=== PATIENT | female | born 1995 | race Two or more races ===

== ENCOUNTER 2023-09-20 20:26 | Emergency (ER) | payer SELFPAY ==
[2023-09-20 20:43] VITALS: BP 142/89
[2023-09-20 20:57] LABS: % Basophils 0.3 % (0-2); % Eosinophils 1.4 % (0-6); % Immature Granulocytes 0.5 % (0-0.5); % Lymphocytes 21.2 % (20.5-51.1); % Monocytes 4.5 % (1.7-9.3); % Neutrophils 72.1 % (42.2-75.2); Absolute Eosinophils 0.1 10^3/uL (0-0.7); Absolute Lymphocytes 1.9 10^3/uL (1.2-3.4); Absolute Monocytes 0.4 10^3/uL (0.1-0.6); Absolute Neutrophils 6.3 10^3/uL (1.4-6.5); Hematocrit 34.3 % (37.0-47.0); Hemoglobin 12.2 g/dL (12.0-16.0); Mean Corp Hgb Conc. 35.6 g/dL (33.0-37.0); Mean Corpuscular Hgb 27.8 pg (27.0-31.0); Mean Corpuscular Volume 78.1 fL (81.0-99.0); Mean Platelet Volume 10.1 fL (7.4-10.4); Nucleated Red Blood Cells % 0 %; Platelet Count 271 10^3/uL (130-400); Red Blood Cell Count 4.39 10^6/uL (4.20-5.40); Red Cell Dist. Width 13.2 % (11.5-14.5); White Blood Cell Count 8.7 10^3/uL (4.8-10.8)
[2023-09-20 21:20] LABS: ALT (SGPT) 38 U/L (0-35); AST (SGOT) 28 U/L (14-36); Albumin 4.3 g/dl (3.5-5.0); Alkaline Phosphatase 70 U/L (38-126); Blood Urea Nitrogen 5 mg/dl (7-17); Calcium 9.6 mg/dl (8.4-10.2); Carbon Dioxide 21 mmol/L (22-30); Chloride 106 mmol/L (98-107); Glucose 93 mg/dl (70-99); Potassium 3.9 mmol/L (3.5-5.1); Sodium 136 mmol/L (135-145); Total Bilirubin 0.5 mg/dl (0.2-1.3); eGFR > 60.00
[2023-09-21] MEDS: LET TOPICAL ANESTHETIC GEL 3 ML TOPICAL (01:06)
[2023-09-21 01:08] VITALS: BP 111/64
--- NOTE | 2023-09-21 01:58 | ED.GENMED ---
History of Present Illness
General
Chief Complaint: Abdominal Symptoms
Source: patient
Exam Limitations: none
Time Seen by Provider: 09/21/23 00:22
Nursing documentation reviewed up to this point in time: agreed with
History of Present Illness
History of Present Illness:
28-year-old female presenting to the emergency department currently 14 weeks with concerns of constipation and anal discomfort. She claims that she has sharp pain to the anus over the past 2 days made worse when straining. She has noted
some blood in the toilet as well described as red blood and dripping denies large-volume. Denies lightheadedness chest pain shortness of breath has had ongoing nausea of .
Review of Systems
Review of Systems
Allergies reviewed?: Yes
All Other Systems: ROS reviewed and negative except as documented in HPI and ROS
Phy Exam
Physical Exam
Physical Exam:
GENERAL: Alert , in no apparent distress
EYE: pupils equal and reactive
NECK: Supple, no significant adenopathy.
ENT: o/p clr, mmm.
CARDIAC: Regular rate and rhythm .
LUNGS: Clear breath sounds bilaterally, no acute respiratory distress, no wheezes/rales/rhonchi
ABDOMEN: Rectal examination revealing a anal fissure to the right lateral portion no external head no active bleeding. Very uncomfortable when viewing the area. Patient was unable to tolerate an internal exam. Soft, without focal tenderness, no
r/g, no cvat
NEUROLOGICAL: Alert and oriented, no focal neuro deficits
SKIN: Warm and dry, skin intact.
MUSCULOSKELETAL: No edema, well perfused.
PSYCH: Normal and appropriate interaction.
Course
Orders/Labs/Results
Orders:
Orders
09/20/23 20:51
Complete Blood Count/With Diff Urgent
Comprehensive Metabolic Panel Urgent
09/21/23 00:54
Lidocaine/Epinephrine/Tetracai [Let Topical Anesthetic Gel] 3 ml TOPICAL NOW STA
Abnormal Lab Results
09/20/23
20:51
Hct 34.3 L %
(37.0-47.0)
MCV 78.1 L fL
(81.0-99.0)
Carbon Dioxide 21 L mmol/L
(22-30)
BUN 5 L mg/dl
(7-17)
Creatinine 0.5 L mg/dL
(0.6-1.0)
ALT 38 H U/L
(0-35)
09/20/23 20:51
09/20/23 20:51
Vital Signs
Initial and Last Documented VS:
Initial Vital Signs
Temp Pulse Resp BP Pulse Ox
98.5 F 104 19 142/89 92
09/20/23 20:43 09/20/23 20:43 09/20/23 20:43 09/20/23 20:43 09/20/23 20:43
Last Documented Vital Signs
Temp Pulse Resp BP Pulse Ox
98.5 F 74 18 111/64 100
09/20/23 20:43 09/21/23 01:08 09/21/23 01:08 09/21/23 01:08 09/21/23 01:08
MDM/Problems Addressed
MDM/Problems Addressed:
28-year-old female presenting to the emergency department today with concerns of anal discomfort with bowel movements as well as constipation recently. Patient is currently 14 weeks . On examination she has an anal fissure no hemorrhoids
no abdominal pain. Patient was given a numbing cream otherwise given Metamucil to help with constipation but stable for outpatient treatment return precautions given.
*Critical Care Note
Total Time (30-74mins, 75-104mins- exclusive of procedures): Not Applicable
ED Attending Note
-
Portions of this chart may have been created with voice recognition software.� Occasional wrong word or��sound alike� substitutions may have occurred due to the inherent limitations of voice recognition software.
Discharge Plan
Departure
Patient Disposition: Home (Routine Discharge)
Date of Disposition: 09/21/23
Time of Disposition: 01:58
Patient with high blood pressure during this ER visit?: No
Condition: Good
Covid-19: Not Applicable
Discharge Problem:
Acute anal fissure
Instructions: Anal Fissure (DC)
Prescriptions:
New
Trena-Jj Kit 2-2 % kit
1 applic OR BID Qty: 1 0RF
Metamucil 3.4 gram/5.4 gram powder
1 tbsp PO DAILY Qty: 660 0RF
Referrals:
NONE,* [Family Provider] -
Activity Restrictions/Additional Instructions:
You came to the emergency department and were found to have an anal fissure. This should heal in a few days treated properly. Please use the topical cream or ointment to help with symptoms and use the Metamucil to soften stool. Please stay very
hydrated. Return to the emergency department for any worsening, new or concerning symptoms.
Interventions
Interventions:
*Risk Screen - Suicide Last Done: 09/21/23 02:09
*General Assessment Last Done: 09/21/23 02:09
*Neglect/Abuse Screening Last Done: 09/21/23 02:09
ED- Fall Risk Assessment Last Done: 09/21/23 02:09
*ED COVID-19 Vaccine History Last Done: 09/21/23 02:09
*Nursing Disposition Last Done: 09/21/23 02:09
NR-Lsapdp-Gtwwcqnbsc Assessment Last Done: 09/21/23 00:00
Discharge Date and Time
Discharge Date/Time: 09/21/23 02:09
Print Language: YEMENI
== END 2023-09-21 02:09 | disposition home or self-care (01) ==
LOC: EMR 20:26
PROVIDERS: EMERGENCY PHYSICIAN Emergency Medicine
DX: O99.891 Other specified diseases and conditions complicating pregnancy (principal); K60.0 Acute anal fissure; Z3A.14 14 weeks gestation of pregnancy
CPT/HCPCS: 99283; 80053; 85025

== ENCOUNTER 2023-09-24 22:01 | Emergency (ER) | payer SELFPAY ==
[2023-09-24 22:03] VITALS: BP 122/79
[2023-09-25] MEDS: FLEET MINERAL OIL ENEMA 133 ML RECTAL (00:26)
--- NOTE | 2023-09-25 00:44 | ED.GENMED ---
History of Present Illness
General
Chief Complaint: Abdominal Symptoms
Source: patient
Exam Limitations: none
Time Seen by Provider: 09/24/23 23:36
Nursing documentation reviewed up to this point in time: agreed with
History of Present Illness
History of Present Illness:
Patient G1, P0, approximately 15 weeks , presents to ED secondary to difficulty with bowel movement despite having rectal pressure. Patient has taken number of [id number]-[id number] medications, without improvement symptoms. Denies fever.
Denies chills. Denies nausea or vomiting. Denies loss of appetite. Denies abdominal pain. Denies previous history of similar symptoms.
Review of Systems
Review of Systems
Allergies reviewed?: Yes
All Other Systems: ROS reviewed and negative except as documented in HPI and ROS
Constitutional: Reports no symptoms
ABD/GI: Reports constipated; Denies abdominal pain or vomiting
Musculoskeletal: Reports no symptoms
Skin: Reports no symptoms
Neurological: Reports no symptoms
Phy Exam
Physical Exam
Physical Exam:
Physical Exam
General: no apparent distress, not acutely ill. afebrile
Head: nc/at. eomi
Neck: supple. normal range of motion
Abdomen: normal bowel sounds. not tender. rectal exam (SIERRA Avelar, at bedside) : hard stool noted
Neuro: alert and oriented. no focal neurological deficits
Skin: no rash
Psychiatric: well kept. interactive and cooperative
Extremities: no edema. no calf tenderness.
Course
Orders/Labs/Results
Orders:
Orders
09/25/23 00:04
Mineral Oil Enema [Fleet Mineral Oil Enema] 133 ml .ROUTE .STK-MED ONE
09/25/23 00:05
Phosphate Enema [Fleet Phosphate Enema-Adult] 135 ml RECTAL NOW STA
09/25/23 00:25
Mineral Oil Enema [Fleet Mineral Oil Enema] 133 ml RECTAL NOW STA
Vital Signs
Initial and Last Documented VS:
Initial Vital Signs
Temp Pulse Resp BP Pulse Ox
98.3 F 94 18 122/79 99
09/24/23 22:03 09/24/23 22:03 09/24/23 22:03 09/24/23 22:03 09/24/23 22:03
Last Documented Vital Signs
Temp Pulse Resp BP Pulse Ox
98.3 F 100 18 120/75 99
09/24/23 22:03 09/25/23 00:55 09/24/23 22:03 09/25/23 00:55 09/24/23 22:03
MDM/Problems Addressed
MDM/Problems Addressed:
Patient successfully disimpacted in ED, with removal of moderate amount of stool. Patient reports improved symptoms after treatment. Patient otherwise is safe to be discharged home, with recommendation to continue bowel regimen at home, including
MiraLAX as an outpatient, as well as PCP f/u as outpatient.
*Critical Care Note
Total Time (30-74mins, 75-104mins- exclusive of procedures): Not Applicable
ED Attending Note
-
Portions of this chart may have been created with voice recognition software.� Occasional wrong word or��sound alike� substitutions may have occurred due to the inherent limitations of voice recognition software.
Discharge Plan
Departure
Patient Disposition: Home (Routine Discharge)
Date of Disposition: 09/25/23
Time of Disposition: 00:44
Patient with high blood pressure during this ER visit?: Yes
Condition: Good
Discharge Problem:
Constipation
Instructions: Constipation, Adult ED
Prescriptions:
No Action
Trena-Jj Kit 2-2 % kit
1 applic [place] BID Qty: 1 0RF
Metamucil 3.4 gram/5.4 gram powder
1 tbsp PO DAILY Qty: 660 0RF
Referrals:
NONE,* [Family Provider] -
Activity Restrictions/Additional Instructions:
As discussed, please follow up with your primary care physician with any further concerns. In the meantime, please consider taking Miralax as well as increasing fiber intake at home.
Interventions
Interventions:
*Risk Screen - Suicide Last Done: 09/24/23 22:03
*General Assessment Last Done: 09/24/23 22:03
*Neglect/Abuse Screening Last Done: 09/24/23 22:03
*Nursing Disposition Last Done: 09/25/23 00:55
SR-Wcqftp-Ptzmtpsazb Assessment Last Done: 09/24/23 23:29
Discharge Date and Time
Discharge Date/Time: 09/25/23 00:56
Print Language: BHUTANESE
[2023-09-25 00:55] VITALS: BP 120/75
== END 2023-09-25 00:56 | disposition home or self-care (01) ==
LOC: EMR 22:01
PROVIDERS: EMERGENCY PHYSICIAN Emergency Medicine
DX: O26.892 Other specified pregnancy related conditions, second trimester (principal); Z3A.15 15 weeks gestation of pregnancy; K59.00 Constipation, unspecified; R11.0 Nausea
CPT/HCPCS: 99283

== ENCOUNTER 2024-04-19 02:16 | Emergency (ER) | payer OTHER, SELFPAY ==
[2024-04-19] VITALS (7 sets, daily range): BP systolic 115–129; BP diastolic 62–79; BMI 38.6
--- NOTE | 2024-04-19 02:59 | ED.GENMED ---
History of Present Illness
<Fernando Cole DO - Last Filed: 04/19/24 06:45>
General
Chief Complaint: Chest Pain
Source: patient, family and ambulance crew
Exam Limitations: none
Time Seen by Provider: 04/19/24 02:22
Nursing documentation reviewed up to this point in time: agreed with
History of Present Illness
History of Present Illness:
This a pleasant 28-year-old female with history of hypertension and SVT presents to the emergency department chest pain that began approximate 30 minutes prior to arrival. She is 4 weeks with a healthy child. She states that the pain
came on suddenly and has been severe. She has never experienced this pain before. Denies fever, chills, nausea or vomiting. Patient received nitroglycerin prior to arrival via EMS.
Review of Systems
<DO Michaela Rollins Last Filed: 04/19/24 06:45>
Review of Systems
Allergies reviewed?: Yes
All Other Systems: ROS reviewed and negative except as documented in HPI and ROS
Constitutional: Reports no symptoms
EENT: Reports no symptoms
Respiratory: Reports no symptoms
Cardiac: Reports chest pain
ABD/GI: Reports no symptoms
: Reports no symptoms
Musculoskeletal: Reports no symptoms
Skin: Reports no symptoms
Neurological: Reports no symptoms
Endocrine: Reports no symptoms
Hematologic/Lymphatic: Reports no symptoms
Psychiatric: Reports no symptoms
Phy Exam
<Daniel Mendoza MD - Last Filed: 04/20/24 10:58>
Physical Exam
Physical Exam:
*
Scores
<Daniel Mendoza MD - Last Filed: 04/20/24 10:58>
Heart Score for Chest Pain Patients
STEMI patient?: Not applicable
Course
<DO Michaela Rollins Last Filed: 04/19/24 06:45>
Orders/Labs/Results
Orders:
Orders
04/19/24 02:19
Electrocardiogram (*1) Urgent
Reason for Study: Chest Pain
EKG- Treatment ONCE
04/19/24 02:27
CR Chest Portable - 1 View Urgent
Comment:
Reason For Exam: chest pain
Reason Study Needs to be Portable: Patient Unstable
04/19/24 02:48
Comprehensive Metabolic Panel Urgent
Prothrombin Time Urgent
04/19/24 02:49
Complete Blood Count/With Diff Urgent
Troponin I Urgent
04/19/24 02:59
CT Chest PE Study Urgent
Comment:
Reason For Exam: sudden cp rad thru back, dyspnea. 4 wks pptm
04/19/24 04:23
Troponin I Urgent
04/19/24 05:37
US Abdomen Complete/Upper Urgent
Comment:
Reason For Exam: upper abd pain
04/19/24 05:40
Sucralfate Suspension [Carafate Suspension] 1 gm PO NOW STA
04/19/24 Breakfast
Low Fat
At Your Request: Full Participation
04/19/24 06:44
HYDROmorphone [Dilaudid] 0.5 mg IV NOW STA
04/19/24 07:00
Ondansetron Injectable [Zofran] 4 mg .ROUTE .STK-MED ONE
04/19/24 07:02
Ondansetron Injectable [Zofran] 4 mg IV NOW STA
04/19/24 10:09
Urinalysis Reflex To Culture Urgent
Date Specimen was Collected: 04/19/24
Time Specimen was Collected: 10:00
Abnormal Lab Results
04/19/24 04/19/24
02:48 02:49
RBC 3.85 L 10^6/uL
(4.20-5.40)
Hgb 10.7 L g/dL
(12.0-16.0)
Hct 31.8 L %
(37.0-47.0)
BUN 26 H mg/dl
(7-17)
Glucose 115 H mg/dl
(70-99)
AST 38 H U/L
(14-36)
04/19/24 02:49
04/19/24 02:48
Vital Signs
Initial and Last Documented VS:
Initial Vital Signs
Pulse BP Pulse Ox
78 121/79 100
04/19/24 02:19 04/19/24 02:19 04/19/24 02:19
Last Documented Vital Signs
Temp Pulse Resp BP Pulse Ox
98.1 F 97 24 129/68 96
04/19/24 02:20 04/19/24 08:30 04/19/24 08:30 04/19/24 08:00 04/19/24 08:00
<Daniel Mendoza MD - Last Filed: 04/20/24 10:58>
Orders/Labs/Results
Orders:
Orders
04/19/24 02:19
Electrocardiogram (*1) Urgent
Reason for Study: Chest Pain
EKG- Treatment ONCE
04/19/24 02:27
CR Chest Portable - 1 View Urgent
Comment:
Reason For Exam: chest pain
Reason Study Needs to be Portable: Patient Unstable
04/19/24 02:48
Comprehensive Metabolic Panel Urgent
Prothrombin Time Urgent
04/19/24 02:49
Complete Blood Count/With Diff Urgent
Troponin I Urgent
04/19/24 02:59
CT Chest PE Study Urgent
Comment:
Reason For Exam: sudden cp rad thru back, dyspnea. 4 wks pptm
04/19/24 04:23
Troponin I Urgent
04/19/24 05:37
US Abdomen Complete/Upper Urgent
Comment:
Reason For Exam: upper abd pain
04/19/24 05:40
Sucralfate Suspension [Carafate Suspension] 1 gm PO NOW STA
04/19/24 Breakfast
Low Fat
At Your Request: Full Participation
04/19/24 06:44
HYDROmorphone [Dilaudid] 0.5 mg IV NOW STA
04/19/24 07:00
Ondansetron Injectable [Zofran] 4 mg .ROUTE .STK-MED ONE
04/19/24 07:02
Ondansetron Injectable [Zofran] 4 mg IV NOW STA
04/19/24 10:09
Urinalysis Reflex To Culture Urgent
Date Specimen was Collected: 04/19/24
Time Specimen was Collected: 10:00
Abnormal Lab Results
04/19/24 04/19/24
02:48 02:49
RBC 3.85 L 10^6/uL
(4.20-5.40)
Hgb 10.7 L g/dL
(12.0-16.0)
Hct 31.8 L %
(37.0-47.0)
BUN 26 H mg/dl
(7-17)
Glucose 115 H mg/dl
(70-99)
AST 38 H U/L
(14-36)
04/19/24 02:49
04/19/24 02:48
Vital Signs
Initial and Last Documented VS:
Initial Vital Signs
Pulse BP Pulse Ox
78 121/79 100
04/19/24 02:19 04/19/24 02:19 04/19/24 02:19
Last Documented Vital Signs
Temp Pulse Resp BP Pulse Ox
98.1 F 97 24 129/68 96
04/19/24 02:20 04/19/24 08:30 04/19/24 08:30 04/19/24 08:00 04/19/24 08:00
<Fernando Cole DO - Last Filed: 04/19/24 06:45>
*Critical Care Note
Total Time (30-74mins, 75-104mins- exclusive of procedures): Not Applicable
<Fernando Cole DO - Last Filed: 04/19/24 06:45>
Update Note
Update Note:
CTA chest with IV contrast
IMPRESSION:
No central pulmonary embolus. Nondiagnostic assessment beyond the central pulmonary arteries secondary to suboptimal bolus contrast timing and extensive artifact.
Artifact limits assessment of the aorta which appears grossly unremarkable. Mild cardiomegaly. Thyroid gland normal. No suspicious lymphadenopathy.
Lungs clear. No pneumothorax or pleural effusion. Central airways patent. Liver is enlarged.
Finalized at 3:42 AM EST
Patient resting comfortably. She states her chest pain is now in her abdomen. Will get an ultrasound of her gallbladder as well as give her Carafate.
Order #:[id number]
Exams: US Abdomen Complete/Upper
US Abdomen Complete/Upper 04/19/2024 5:45 AM
Indication:upper abd pain.
Comparison: None..
Findings:
Liver is unremarkable in echotexture without evidence of focal lesion. The portal and hepatic vessels appear grossly patent.
No intra- or extrahepatic biliary ductal dilatation with the visualized portion of the common duct measuring 6 mm. Gallstones present. No suspicious gallbladder wall thickening, pericholecystic fluid or sonographic Guerra's sign.
Limited visualization of the tail of the pancreas, with the visualized portion of the pancreas unremarkable. Spleen measures 13.4 cm in length, which is borderline enlarged. No free fluid in the upper abdomen.
Right kidney measures 10.5 cm, and the left kidney measures 11.8 cm in length. Mild left hydronephrosis. No hydronephrosis.
Visualized portions of the abdominal aorta and inferior vena cava appear unremarkable.
IMPRESSION:
1. Cholelithiasis without sonographic evidence for acute cholecystitis.
2. Borderline splenomegaly.
3. Mild left-sided hydronephrosis without an obstructing cause identified sonographically.
I wanted to discuss ultrasound findings with the patient. She is having severe abdominal pain again. This is reminiscent of the pain that she came in with. Patient to get pain meds and admitted to the hospitalist service.
ED Attending Note
<Fernando Cole DO - Last Filed: 04/19/24 06:45>
-
Portions of this chart may have been created with voice recognition software.� Occasional wrong word or��sound alike� substitutions may have occurred due to the inherent limitations of voice recognition software.
<Daniel Mendoza MD - Last Filed: 04/20/24 10:58>
ED Attending Note
ED Attending Note:
Patient evaluated by admitting hospitalist, . At this time, patient is pain-free and requesting to be discharged home. Risk and benefits discussed with patient, including worsening symptoms, i.e. pain/infection. Patient will follow-up
with referred surgery as well as urology for outpatient consultation, with understanding that she must return to ED with worsening symptoms, i.e. fever/worsening pain/vomiting. Patient otherwise is afebrile, hemodynamically stable, and
nontoxic-appearing, at time of discharge.
Discussed left mild hydronephrosis noted on ultrasound, with on-call urology, . As patient is asymptomatic with normal workup, feels that patient can be discharged home for outpatient follow-up in the office.
Discharge Plan
Departure
Patient Disposition: Home (Routine Discharge)
Date of Disposition: 04/19/24
Time of Disposition: 06:44
Admit to: Med/Surg
Patient with high blood pressure during this ER visit?: No
Condition: Good
Discharge Problem:
Cholelithiasis, Hydronephrosis
Instructions: Gallstones, Hydronephrosis in adults, Low-fat diet
Prescriptions:
No Action
acetaminophen [Tylenol] 325 mg Tablet
650 mg PO Q4HPRN PRN (Reason: mild pain)
albuterol sulfate 2.5 mg /3 mL (0.083 %) Solution For Nebulization
2.5 mg INHALATION R Q4HPRN PRN (Reason: sob)
ascorbic acid (vitamin C) [Vitamin C] 500 mg Tablet
500 mg PO DAILY
ferrous sulfate 325 mg (65 mg iron) Tablet
325 mg PO DAILY
albuterol sulfate [ProAir HFA] 90 mcg/actuation Hfa Aerosol Inhaler
2 puff INHALATION R Q6HPRN PRN (Reason: sob)
cholecalciferol (vitamin D3) [Vitamin D3] 25 mcg (1,000 unit) Tablet
25 mcg PO DAILY
28-800 mg-mcg Tablet
1 tab PO DAILY
Referrals:
Lebron Denson MD [Active] -
Edd Owen MD [Active] -
NONE,* [Family Provider] -
Activity Restrictions/Additional Instructions:
As discussed, please follow-up with referred general surgeon and urologist for further evaluation and treatment. Please consider return to ED with worsening symptoms, i.e. fever/worsening pain/vomiting.
Interventions
Interventions:
*Risk Screen - Suicide Last Done: 04/19/24 02:20
*General Assessment Last Done: 04/19/24 02:20
*Neglect/Abuse Screening Last Done: 04/19/24 02:20
ED- Fall Risk Assessment Last Done: 04/19/24 02:43
*ED COVID-19 Vaccine History Last Done: 04/19/24 02:47
*Nursing Disposition Last Done: 04/19/24 13:20
ED- Cardiac Assessment Last Done: 04/19/24 02:27
Discharge Date and Time
Discharge Date/Time: 04/19/24 13:20
Print Language: SETSWANA
[2024-04-19 03:01] LABS: % Basophils 0.3 % (0-2); % Eosinophils 1.7 % (0-6); % Immature Granulocytes 0.3 % (0-0.5); % Lymphocytes 34.6 % (20.5-51.1); % Monocytes 5.5 % (1.7-9.3); % Neutrophils 57.6 % (42.2-75.2); Absolute Eosinophils 0.1 10^3/uL (0-0.7); Absolute Lymphocytes 2.6 10^3/uL (1.2-3.4); Absolute Monocytes 0.4 10^3/uL (0.1-0.6); Absolute Neutrophils 4.3 10^3/uL (1.4-6.5); Hematocrit 31.8 % (37.0-47.0); Hemoglobin 10.7 g/dL (12.0-16.0); Mean Corp Hgb Conc. 33.6 g/dL (33.0-37.0); Mean Corpuscular Hgb 27.8 pg (27.0-31.0); Mean Corpuscular Volume 82.6 fL (81.0-99.0); Nucleated Red Blood Cells % 0 %; Platelet Count 275 10^3/uL (130-400); Red Blood Cell Count 3.85 10^6/uL (4.20-5.40); Red Cell Dist. Width 12.7 % (11.5-14.5); White Blood Cell Count 7.5 10^3/uL (4.8-10.8)
[2024-04-19 03:09] LABS: PT 12.5 Sec (11.4-14.6)
[2024-04-19 03:20] LABS: ALT (SGPT) 28 U/L (0-35); AST (SGOT) 38 U/L (14-36); Albumin 3.9 g/dl (3.5-5.0); Alkaline Phosphatase 79 U/L (38-126); Blood Urea Nitrogen 26 mg/dl (7-17); Calcium 8.7 mg/dl (8.4-10.2); Carbon Dioxide 23 mmol/L (22-30); Chloride 102 mmol/L (98-107); Estimated Creatinine Clearance 113 ml/min; Glucose 115 mg/dl (70-99); Potassium 3.8 mmol/L (3.5-5.1); Sodium 139 mmol/L (135-145); Total Bilirubin 0.3 mg/dl (0.2-1.3); Total Protein 6.6 g/dl (6.3-8.2); eGFR > 60.00
[2024-04-19 03:22] LABS: Troponin I < 0.012 ng/ml
[2024-04-19 05:16] LABS: Troponin I 0.013 ng/ml
[2024-04-19] MEDS: CARAFATE SUSPENSION 1 GM PO (05:48)
[2024-04-19] MEDS: ZOFRAN 4 MG IV (07:02)
[2024-04-19] MEDS: DILAUDID 0.5 MG IV (07:03)
--- NOTE | 2024-04-19 09:56 | CON.HOSP ---
Family Physician
-
Family Physician: * NONE
Chief Complaint
-
Asked to see patient for admission. Patient presented with acute chest/abdominal pain.
History of Present Illness
4 weeks . She delivered a healthy girl baby by . In the she was troubled with nausea but otherwise mostly her was unremarkable. She denies any immediate post complications.
Currently lactating and she uses breast pumps.
She was fine till last evening when she suddenly started to develop chest pain/abdominal pain
She started to pump yesterday evening and she felt a little hot. She felt a sudden need to go to the bathroom as she felt nauseous.
She felt like her weight and a pain in her chest could not breathe. She thought it may be gas. She had associated nausea from get go. She was getting waves of nausea throughout.
It did not relieve and it got more and more intense and she started to panic. She felt she was going to pass out. Family called ambulance.
The pain was intense and she points out to the center of the chest and goes to the back sometimes it moves to the left side to the back and sometimes right side to the back.
Continue to have symptoms on arrival to. She almost had this pain and discomfort for 2 hours now relieved.
She says when she was in the ultrasound department and when the generator technician was touching at the center of the upper abdomen with the probe she was having more pain. Currently with mild nausea but no pain.
She got only 1 dose of Dilaudid and her pain is subsided and with no recurrence she was wondering if she can go home.
Denies any prior history of GERD or reflux symptoms before this. Denies prior history of gallstones but she says all of her family members had gallbladders removed.
She denies any vaginal discharge. She was feeling constipated which she thinks may be iron pills related.
She denies any dysuria, frequency or urgency of urine. No left flank pain. No prior history of kidney disease.
Medical History
Past Medical History
Past Medical History: Reports Asthma
Past Surgical History: Reports and Tonsilectomy
Social History
Tobacco: Non-smoker
Alcohol: None
Drug: None
Living: With Family
Family History
Family History: Other (Gallbladder disease)
Allergies / Home Medications
Allergies reflects when Allergies were last updated in [employer].
Home Medications with original date entered in [employer]
Allergy/Medication List:
Allergies
Allergy/AdvReac Type Severity Reaction Status Date / Time
No Known Allergies Allergy Verified 04/19/24 02:20
Home Medications
acetaminophen 325 mg tablet (Tylenol) 650 mg PO Q4HPRN PRN mild pain 04/19/24
albuterol sulfate 2.5 mg/3 mL (0.083 %) solution for nebulization 2.5 mg inhalation R Q4HPRN PRN sob 04/19/24
albuterol sulfate 90 mcg/actuation aerosol inhaler 2 puff inhalation R Q6HPRN PRN sob 04/19/24
ascorbic acid (vitamin C) 500 mg tablet (Vitamin C) 500 mg PO DAILY 04/19/24
cholecalciferol (vitamin D3) 25 mcg (1,000 unit) tablet (Vitamin D3) 25 mcg PO DAILY 04/19/24
ferrous sulfate 325 mg (65 mg iron) tablet 325 mg PO DAILY 04/19/24
vit no.133-ferrous fumarate 28 mg-folic acid 800 mcg tablet () 1 tab PO DAILY 04/19/24
Review of Systems
-
Constitutional: Denies Fever or Chills
EENT: Denies Sore Throat
Respiratory: Denies Cough
Musculoskeletal: Denies Joint Pain
Neurological: Denies Dizzy or Headache
Physical Exam
Vital Signs
Vital Signs
Temp Pulse Resp BP Pulse Ox
98.1 F 97 24 129/68 96
04/19/24 02:20 04/19/24 08:30 04/19/24 08:30 04/19/24 08:00 04/19/24 08:00
Physical Exam
General: Comfortable
HEENT: Moist Mucous Membranes
Respiratory: Clear, Non Labored Respirations and Accessory Resp Muscle Use
Cardiac: S1/S2 and Regular Rhythm
GI: Soft, Non Tender (And negative Guerra sign), Non Distended and Normal Bowel Sounds
Neuro: AO x 3
Psych: Calm; Negative Confused
Laboratory Results
-
Laboratory Results
04/19/24 02:49
04/19/24 02:48
PT 12.5 Sec (11.4-14.6) 04/19/24 02:48
INR 0.90 04/19/24 02:48
Total Bilirubin 0.3 mg/dl (0.2-1.3) 04/19/24 02:48
AST 38 U/L (14-36) H 04/19/24 02:48
ALT 28 U/L (0-35) 04/19/24 02:48
Alkaline Phosphatase 79 U/L (38-126) 04/19/24 02:48
Troponin I 0.013 ng/ml 04/19/24 04:23
Data Reviewed
-
CT Scan: Report Reviewed by Me (Of chest)
Ultrasound: Report Reviewed by Me (Of abdomen)
Lab Data: Labs Reviewed
Impression / Plan
-
28-year-old female 4 weeks from a presents with acute onset of central upper abdominal/chest pain radiating to back associated with nausea. Episodic now all resolved.
Abdomen benign. Ultrasound of the abdomen shows cholelithiasis without obstruction. LFT shows AST of 38 which is just above the upper limit of normal otherwise okay. CT of the chest shows no evidence of PE. Troponins were negative. EKG shows
normal sinus rhythm and normal EKG.
Based on the clinical presentation clinical concern is for biliary colic but with no obstructive features I would consider a surgical referral from the ER and follow as outpatient. Patient wants to go home.
Will feed her and if she is able to tolerated diet she could be discharged from the ER with general surgery follow-up.
Mild left-sided hydronephrosis-asymptomatic. Creatinine normal. No urinary symptoms. No flank pain on the left side or abdominal pain in the left lower quadrant. She is 4 weeks . I would make a referral to urology as an outpatient
maybe she needs another follow-up ultrasound to make sure it is resolving.
Asthma without flare
Discussed with ER physician Dr. Mendoza-allow her to eat and if she is able to tolearte diet DC.
[2024-04-19 10:40] LABS: Urine Albumin Negative (Neg - Trace); Urine Bilirubin Negative (Negative); Urine Character Clear (Clear); Urine Color Yellow; Urine Glucose Negative (Negative); Urine Ketone Negative (Negative); Urine Leukocyte Negative (Negative); Urine Nitrite Negative (Negative); Urine Occult Blood Negative (Negative); Urine Specific Gravity 1.005 (<1.030); Urine Urobilinogen Negative (Neg - 1+)
== END 2024-04-19 13:20 | disposition home or self-care (01) ==
LOC: EMR 02:16
PROVIDERS: Emergency Medicine; EMERGENCY PHYSICIAN Student in an Organized Health Care Education/Training Program; OTHER PHYSICIAN Internal Medicine
DX: O99.63 Diseases of the digestive system complicating the puerperium (principal); K80.20 Calculus of gallbladder without cholecystitis without obstruction; O99.893 Other specified diseases and conditions complicating puerperium; N13.30 Unspecified hydronephrosis; O99.53 Diseases of the respiratory system complicating the puerperium; J45.909 Unspecified asthma, uncomplicated
CPT/HCPCS: 96374; 96375; 99285; 71045; 71275; 76700; 80053; 81003; 84484; 85025; 85610; 93005; Q9967

== ENCOUNTER 2024-06-01 06:20 | Day surgery (SDC) | payer OTHER, SELFPAY ==
[2024-06-01] VITALS (7 sets, daily range): BP systolic 92–137; BP diastolic 49–85; BMI 38.1
[2024-06-01] MEDS: TYLENOL 1000 MG PO (10:12)
[2024-06-01] MEDS: NORMOSOL-R/PLASMALYTE-A 1000 IV (10:12)
--- NOTE | 2024-06-01 10:16 | W.SUR.PREOP ---
Pre-Operative Surgical Note
-
I have examined this patient prior to the performance of the scheduled procedure.
The patient's condition is unchanged from the time of the current History and
Physical and the patient is able to undergo the scheduled procedure.
--- NOTE | 2024-06-01 10:23 | HP.FOC2 ---
Focused History & Physical
Chief Complaint
HPI:
Chief Complaint: Biliary colic
HPI / Indication for Planned Procedure: This is a 28-year-old female who presents with symptomatic cholelithiasis/biliary colic. Will plan for a laparoscopic cholecystectomy with cholangiogram.
Relevant Past Medical History: Negative
Relevant Social History: Negative
Relevant Family History: Negative
Relevant Past Surgical History: Negative
Review of Systems
Review of Pertinent Systems: All Systems Negative
Medication
See Medication form for detailed medications: Yes
Medication List (including Herbals & OTC):
albuterol sulfate 2.5 mg/3 mL (0.083 %) solution for nebulization 2.5 mg inhalation R Q4HPRN PRN sob 04/19/24
albuterol sulfate 90 mcg/actuation aerosol inhaler 2 puff inhalation R Q6HPRN PRN sob 04/19/24
ascorbic acid (vitamin C) 500 mg tablet (Vitamin C) 500 mg PO DAILY Supplement 04/19/24
cholecalciferol (vitamin D3) 25 mcg (1,000 unit) tablet (Vitamin D3) 25 mcg PO DAILY Supplement 04/19/24
ferrous sulfate 325 mg (65 mg iron) tablet 325 mg PO DAILY Supplement 04/19/24
vit no.133-ferrous fumarate 28 mg-folic acid 800 mcg tablet () 1 tab PO DAILY Supplement 04/19/24
Pump Roselia 1 cap PO DAILY 05/29/24
norethindrone (contraceptive) 0.35 mg tablet (Jencycla) 0.35 mg PO DAILY 05/29/24
Medications Reviewed: Yes
Allergies and Reactions
Patient has Allergies: Yes
Noted Allergies and Reactions:
Allergy/AdvReac Type Severity Reaction Status Date / Time
stevioside [From Stevia] Allergy throat Verified 06/01/24 09:44
swelling,
hives
Pertinent Physical Exam
All Other Systems: Negative
Head/Neck: Normal
Diagnosis / Assessment
This is a 28-year-old female who presents with symptomatic cholelithiasis/biliary colic.
Plan / Procedure
Will plan for a laparoscopic cholecystectomy with cholangiogram.
Anesthesia/Sedation to be done by Anesthesia Provider: Yes
--- NOTE | 2024-06-01 12:09 | W.IMMPOSTOP ---
Surgical Immed Post Op Note
-
Primary Surgeon: Brad Vasquez MD
Assisting Surgeon: None
Pre-op Diagnosis: Biliary colic
Post-op Diagnosis: Same
Procedure Performed: Laparoscopic cholecystectomy with cholangiogram
Anesthesia Type: General
Specimen / Cultures: Gallbladder and contents
Estimated Blood Loss: 7 cc
Complications: None
Operative Findings: Fairly normal appearing but distended gallbladder with some minimal adhesions over the anterior surface. Critical view of safety obtained prior to a cholangiogram which demonstrated no distal filling defects and normal biliary
anatomy.
--- NOTE | 2024-06-01 12:10 | OR.RPT ---
Operative Report
Operative Report
Patient Name: Edwina Olmedo
: 1995
Date of Operation: 06/01/2024
Preoperative Diagnosis: Symptomatic Cholelithiasis
Postoperative Diagnosis: Same
Procedure(s):
Laparoscopic Cholecystectomy with Cholangiogram
Surgeon(s):
Dr. Vasquez
Risk Management Manager(s):
DERIK Vick
Anesthesia: General
Estimated Blood Loss: 7 cc
Urine Output: None
Drains/Lines/Implants: None
Specimens:
1. Gallbladder and contents
HPI/Surgical Indications:
This is a 28 year old female who presents with abdominal pain. Exam, labs and imaging are consistent with symptomatic cholelithiasis. Risks/Benefits/Alternatives were discussed at length, and the patient agreed to proceed with surgery.
Operative Findings: Fairly normal appearing but distended gallbladder with some minimal adhesions over the anterior surface. Critical view of safety obtained prior to a cholangiogram which demonstrated no distal filling defects and normal biliary
anatomy.
Procedure Description:
The patient was brought to the Operating Room and placed in the supine position. IV antibiotics were infused and sequential compression devices were confirmed to be on. Following uneventful induction of general endotracheal anesthesia, an
orogastric tube was placed. The abdomen was prepped and draped in the usual sterile fashion. The abdomen was entered using a left subcostal Veress technique followed by a 5 mm right upper quadrant Optiview trochar. Pneumoperitoneum to 15 mmHg
pressure was obtained without difficulty and we confirmed that no injury had occurred during our entry. The patient was positioned in reverse trendelenberg and rotated with the right side up slightly. Two 5 mm ports were placed along the right
subcostal area and one 12 mm port in the epigastrium. A locking grasping forceps was placed on the fundus of the gallbladder where it was then retracted cephalad and to the right. There were some adhesions from the omentum tethering the anterior
surface of the gallbladder which were lysed. Using appropriate grasping instruments, the peritoneum overlying the triangle of Calot was incised. The cystic duct/gallbladder junction was identified, dissected circumferentially. The cystic artery
was identified medially and was dissected circumferentially. A critical view was obtained. A clip was then placed on the cystic duct/gallbladder junction and an intraoperative cholangiogram performed using fluoroscopy, which showed good flow of
dye into the duodenum. There were no intra- or extrahepatic bile duct filling defects. The biliary anatomy appeared normal. Following completion of the cholangiogram, the catheter was removed. Two clips were then placed proximally on the cystic
duct and the duct divided. Two clips were placed proximally and one distally on the cystic artery, and the artery was divided. Remaining soft tissue attachments of the gallbladder to the liver bed were then divided using electrocautery. There was
no spillage of bile or stones. The gallbladder bed was inspected and excellent hemostasis was obtained. The gallbladder was extracted through the 12 mm trocar site using an endocatch bag. The abdomen was again irrigated and excellent hemostasis was
assured. All remaining trocars were then removed and the pneumoperitoneum was evacuated. The 12 mm trocar site was closed using a figure of 8 of 0 PDS. All trocar sites were closed at the skin level using 4-0 Monocryl followed by Dermabond.
Overall, the patient tolerated the procedure well and was taken to the Recovery Room postoperatively in stable condition.
I was the attending physician and performed the procedure with assistance of the PA above. The assistance of DERIK Vick was required due to the complexity of the procedure. During the procedure Stefany assisted with retraction, resection, port
placement and closure of the wounds. I was present for all portions of the case, excluding skin closure.
Brad Vasquez MD
[2024-06-01] MEDS: DILAUDID 0.5 MG IV ×3 (12:23→12:51)
== END 2024-06-01 14:02 | disposition home or self-care (01) ==
LOC: SDS 06:20
PROVIDERS: ATTENDING PHYSICIAN Surgery
DX: K80.44 Calculus of bile duct with chronic cholecystitis without obstruction (principal); K80.70 Calculus of gallbladder and bile duct without cholecystitis without obstruction
CPT/HCPCS: 47563; 88304; 74300; 76000